=== PATIENT | female | born 1980 ===

== ENCOUNTER 2017-04-23 18:23 | Emergency (ER) | payer SELFPAY ==
[2017-04-23 18:43] VITALS: RESP 18; TEMP 97.8
[2017-04-23] MEDS ORDERED: Sodium Chloride 0.9% 1,000 ML IV ONE (19:12)
--- NOTE | 2017-04-23 19:47 | C.PDOC ---
History Of Present Illness 36 y/o female, whose PMHx includes Migraines, presents to the ED for evaluation of a migraine headache which began this morning. She describes a generalized, throbbing pain and notes this is typical of her migraine headaches. Patient also reports associated photophobia, nausea, and vomiting. She took Imitrex without relief, so presents to the ED for further evaluation. She denies fever, chills, neck stiffness, extremity numbness/weakness. Time Seen by Provider: 04/23/17 19:08 Chief Complaint (Nursing): Headache History Per: Patient History/Exam Limitations: no limitations Onset/Duration Of Symptoms: Hrs Current Symptoms Are (Timing): Still Present Quality: Aching Preceeding Symptoms: Visual Disturbances, Known Migraine Symptoms Associated Symptoms: Photophobia, Nausea, Vomiting. denies: Blurred Vision, Extremity Weakness Additional History Per: Patient Past Medical History Reviewed: Historical Data, Nursing Documentation, Vital Signs Vital Signs: Last Vital Signs Temp 97.8 F 04/23/17 18:42 Pulse 62 04/23/17 18:42 Resp 18 04/23/17 18:42 BP 150/90 04/23/17 18:42 Pulse Ox 96 04/23/17 19:54 - Medical History PMH: Migraine Surgical History: No Surg Hx Family History: States: Unknown Family Hx - Social History Hx Alcohol Use: No Hx Substance Use: No - Immunization History Hx Tetanus Toxoid Vaccination: No Hx Influenza Vaccination: No Hx Pneumococcal Vaccination: No Review Of Systems Constitutional: Negative for: Fever, Chills Eyes: Positive for: Other (+photophobia) Cardiovascular: Negative for: Chest Pain, Palpitations Respiratory: Negative for: Cough, Shortness of Breath Gastrointestinal: Positive for: Nausea, Vomiting Musculoskeletal: Negative for: Neck Pain Neurological: Positive for: Headache. Negative for: Weakness, Numbness, Dizziness Physical Exam - Physical Exam Appears: Non-toxic, No Acute Distress, Other (uncomfortable) Skin: Normal Color, Warm, Dry Head: Atraumatic, Normacephalic, No Tenderness, No Swelling Eye(s): bilateral: Normal Inspection, PERRL, EOMI, Photophobia Nose: Normal Oral Mucosa: Moist Neck: Normal ROM, Supple Chest: Symmetrical, No Deformity, No Tenderness Cardiovascular: Rhythm Regular, No Murmur Respiratory: Normal Breath Sounds, No Rales, No Rhonchi, No Wheezing Extremity: Bilateral: Atraumatic, Normal Color And Temperature, Normal ROM Neurological/Psych: Oriented x3, Normal Speech, Normal Cranial Nerves, No Cerebellar Signs Gait: Steady ED Course And Treatment O2 Sat by Pulse Oximetry: 96 (on RA) Pulse Ox Interpretation: Normal Medical Decision Making Medical Decision Making: Impression: 36y/o female with migraine type headache Plan: * Reglan IV * Toradol IV * IV fluids * reassess and disposition Progress: Patient received Reglan IV, Toradol IV, and IVF. On re-eval an hour later patient is resting in dark room. She is easily awoken and reports feeling better. She no longer has nausea. She remains alert and oriented, normal neurological exam. Patient feels comfortable going home and will be discharged. Disposition Counseled Patient/Family Regarding: Diagnosis, Need For Followup, Rx Given - Disposition Referrals: Yeyo Hirsch MD [Medical Doctor] - Disposition: HOME/ ROUTINE Disposition Time: 20:46 Condition: STABLE Additional Instructions: Por favor, tome chahal medicacin habitual para las migraas en el primer inicio. Tambin puede isabel el contador de Excedrin o Tylenol, adems de Imitrex. [place] reglan prescrito segn sea necesario para las nuseas y el dolor de jake. 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 - Scribe Statement The provider has reviewed the documentation as recorded by the Scribe (Ute Peck) All medical record entries made by the Scribe were at my direction and personally dictated by me. I have reviewed the chart and agree that the record accurately reflects my personal performance of the history, physical exam, medical decision making, and the department course for this patient. I have also personally directed, reviewed, and agree with the discharge instructions and disposition.
[2017-04-23 21:18] VITALS: BP 105/68; PULSE 92; O2SAT 98
== END 2017-04-23 21:18 | disposition home or self-care (01) ==
LOC: C.ER 18:23
DX: G43.909 Migraine, unspecified, not intractable, without status migrainosus (principal)
CPT/HCPCS: 96361; 96374; 96375; 99285; J1885; J2765; J7040

== ENCOUNTER 2017-10-08 17:40 | Emergency (ER) | payer OTHER ==
[2017-10-08 17:54] VITALS: RESP 18
[2017-10-08] MEDS ORDERED: Sodium Chloride 0.9% 1,000 ML IV ONE (18:56)
--- NOTE | 2017-10-08 19:01 | C.PDOC ---
History Of Present Illness 37 y/o female presents to ED with complaints of 4 days menstrual bleeding associated with usual menstrual cramping and mild nausea. Pt states her menstrual bleeding usually lasts only 2 and a half days. Pt doesn't know if she is . Denies any other physical complaints. Time Seen by Provider: 10/08/17 18:49 Chief Complaint (Nursing): Medical Clearance History Per: Patient History/Exam Limitations: no limitations Onset/Duration Of Symptoms: Hrs Current Symptoms Are (Timing): Still Present Recent travel outside of the [place] States: No Past Medical History Reviewed: Historical Data, Nursing Documentation, Vital Signs Vital Signs: Last Vital Signs Temp 98.5 F 10/08/17 17:52 Pulse 74 10/08/17 17:52 Resp 18 10/08/17 17:52 BP 132/85 10/08/17 17:52 Pulse Ox 100 10/08/17 19:06 - Medical History PMH: Migraine Surgical History: No Surg Hx Family History: States: Unknown Family Hx - Social History Hx Alcohol Use: No Hx Substance Use: No - Immunization History Hx Tetanus Toxoid Vaccination: No Hx Influenza Vaccination: No Hx Pneumococcal Vaccination: No Review Of Systems Constitutional: Negative for: Fever, Chills Cardiovascular: Negative for: Chest Pain Respiratory: Negative for: Shortness of Breath Gastrointestinal: Positive for: Nausea (mild). Negative for: Vomiting, Abdominal Pain, Diarrhea Genitourinary: Positive for: Vaginal Bleeding (menstrual), Other (Menstrual cramping). Negative for: Dysuria, Frequency Skin: Negative for: Rash Neurological: Negative for: Weakness, Numbness Physical Exam - Physical Exam Appears: Well, Non-toxic, No Acute Distress Skin: Normal Color, Warm, Dry Head: Atraumatic, Normacephalic Eye(s): bilateral: Normal Inspection Oral Mucosa: Moist Neck: Supple Chest: Symmetrical, No Tenderness Cardiovascular: Rhythm Regular Respiratory: Normal Breath Sounds, No Rales, No Rhonchi, No Wheezing Gastrointestinal/Abdominal: Normal Exam (Obese), Soft, No Tenderness, No Distention Neurological/Psych: Oriented x3, Normal Speech, Normal Cognition ED Course And Treatment - Laboratory Results Result Diagrams: 10/08/17 19:39 10/08/17 19:39 Lab Interpretation: Normal (ua + blood, neg WBC's) Urine POC: Negative O2 Sat by Pulse Oximetry: 100 (RA) Pulse Ox Interpretation: Normal Progress Note: NS, reglan, pepcid Reevaluation Time: 20:06 Reassessment Condition: Improved Medical Decision Making Medical Decision Making: Ordered blood work and urinalysis. Administered Pepcid and IV fluids. typical menstrual bleeding, NOT , stable hgb 13 Disposition Doctor Will See Patient In The: Office Counseled Patient/Family Regarding: Studies Performed, Diagnosis - Disposition Disposition: HOME/ ROUTINE Disposition Time: 20:07 Condition: GOOD Forms: [facility] (Vietnamese) - Clinical Impression Clinical Impression: Normal menstrual period - Scribe Statement The provider has reviewed the documentation as recorded by the Scribe Simran Graham All medical record entries made by the Scribe were at my direction and personally dictated by me. I have reviewed the chart and agree that the record accurately reflects my personal performance of the history, physical exam, medical decision making, and the department course for this patient. I have also personally directed, reviewed, and agree with the discharge instructions and disposition.
[2017-10-08] MEDS ORDERED: Sodium Chloride 0.9% 1,000 ML ONE (19:38)
[2017-10-08 19:42] LABS: BASO # 0.1 K/uL (0.0-0.2); BASO % 0.6 % (0.0-2.0); EOS # 0.3 K/uL (0.0-0.7); EOS % 2.9 % (0.0-4.0); HEMOGLOBIN 13.1 g/dL (11.0-16.0); LYMPH # 2.3 K/uL (1.0-4.3); LYMPH % 25.5 % (20.0-40.0); MEAN CELL VOLUME 83.3 fL (81.0-99.0); MEAN CORPUSCULAR HEMOGLOBIN 27.7 pg (27.0-31.0); MEAN CORPUSCULAR HGB CONC 33.2 g/dL (33.0-37.0); MEAN PLATELET VOLUME 8.9 fL (7.2-11.7); MONO # 0.6 K/uL (0.0-0.8); MONO % 7.1 % (0.0-10.0); NEUT # 5.7 K/uL (1.8-7.0); NEUT % 63.9 % (50.0-75.0); NRBC % 0.1 % (0.0-2.0); RBC 4.73 Mil/uL (3.80-5.20); RED CELL DISTRIBUTION WIDTH 14.6 % (11.5-14.5)
[2017-10-08 19:45] LABS: URINE BACTERIA FEW (<OCC); URINE BILIRUBIN NEGATIVE (NEGATIVE); URINE BLOOD 3+ (NEGATIVE); URINE CLARITY Hazy (Clear); URINE COLOR Yellow (YELLOW); URINE GLUCOSE (UA) NORMAL (Normal); URINE LEUKOCYTE ESTERASE 1+ Leu/uL (Negative); URINE NITRATE NEGATIVE (NEGATIVE); URINE PROTEIN 2+ mg/dL (NEGATIVE); URINE UROBILINOGEN NORMAL mg/dL (0.2-1.0)
[2017-10-08 19:54] LABS: ALB/GLOB RATIO 1.1 (1.0-2.1); ALBUMIN 3.9 g/dL (3.5-5.0); ALT/SGPT 29 U/L (9-52); AST/SGOT 30 U/L (14-36); BLOOD UREA NITROGEN 10 mg/dL (7-17); CALCIUM 8.7 mg/dl (8.6-10.4); GFR AFRICAN-AMERICAN > 60; GFR NON-AFRICAN AMERICAN > 60
[2017-10-08 19:55] LABS: HCG,QUALITATIVE URINE NEGATIVE (NEGATIVE)
[2017-10-08 20:13] VITALS: BP 134/78; PULSE 81; TEMP 97; O2SAT 97
== END 2017-10-08 20:11 | disposition home or self-care (01) ==
LOC: C.ER 17:40
DX: N93.9 Abnormal uterine and vaginal bleeding, unspecified (principal)
CPT/HCPCS: 80053; 81001; 84703; 85025; 96361; 96374; 96375; 99284; J2765; J7040

== ENCOUNTER 2018-04-09 10:19 | Emergency (ER) | payer OTHER ==
[2018-04-09 10:43] VITALS: RESP 20
--- NOTE | 2018-04-09 10:55 | C.PDOC ---
History Of Present Illness <Ivelisse Terry - Last Filed: 04/09/18 13:41> <Mary Bernabe - Last Filed: 04/11/18 07:35> 37 year old female with no past medical history presents to the ER for pelvic pain. Patient states the pain started about 15 days ago and she has also had white vaginal discharge that started 4 days ago. Patient states she has been recently taking care of her physically disabled as he lost his right limbs and she has had to carry him often. She states she has also had pain with urination. She denies fever, chills, vaginal odor, vaginal pruritus, or sexually transmitted infections. Patient denies recent antibiotic use and states she took ibuprofen yesterday which helped with the lower pelvic pain. (Ivelisse Terry) <Ivelisse Terry - Last Filed: 04/09/18 13:41> <Mary Bernabe - Last Filed: 04/11/18 07:35> Time Seen by Provider: 04/09/18 10:45 Chief Complaint (Nursing): Female Genitourinary Past Medical History - Medical History PMH: Migraine Family History: States: Unknown Family Hx - Social History Hx Alcohol Use: No Hx Substance Use: No - Immunization History Hx Tetanus Toxoid Vaccination: No Hx Influenza Vaccination: No Hx Pneumococcal Vaccination: No <Ivelisse Terry - Last Filed: 04/09/18 13:41> Vital Signs: Last Vital Signs Temp 98.5 F 04/09/18 14:10 Pulse 53 L 04/09/18 14:10 Resp 20 04/09/18 10:41 BP 112/71 04/09/18 14:10 Pulse Ox 100 04/09/18 14:10 Review Of Systems Constitutional: Negative for: Fever, Chills Cardiovascular: Negative for: Chest Pain Respiratory: Negative for: Shortness of Breath Gastrointestinal: Negative for: Nausea, Vomiting, Constipation Genitourinary: Negative for: Dysuria <Ivelisse Terry - Last Filed: 04/09/18 13:41> Physical Exam - Physical Exam Appears: Well Skin: Normal Color Head: Atraumatic, Normacephalic Eye(s): bilateral: Normal Inspection, PERRL, EOMI Ear(s): Bilateral: Normal Cardiovascular: Rhythm Regular Respiratory: Normal Breath Sounds, No Rales, No Rhonchi, No Stridor, No Wheezing Gastrointestinal/Abdominal: Soft, Tenderness (lower pelvic tenderness), No Organomegaly, No Distention Back: CVA Tenderness (right CVA tenderness) Pelvic: Normal External Exam, Normal Speculum Exam, Normal Bimanual Exam, No Vaginal Bleeding, No Vaginal Discharge, No Cervical Motion Tenderness, No Adnexal Tenderness, No Enlarged Uterus, No Tender Uterus Extremity: No Tenderness, No Pedal Edema Neurological/Psych: Oriented x3 <Ivelisse Terry - Last Filed: 04/09/18 13:41> ED Course And Treatment - Laboratory Results Urine POC: Negative O2 Sat by Pulse Oximetry: 98 <Ivelisse Terry - Last Filed: 04/09/18 13:41> - CT Scan/US transvaginal US Other Rad Studies (CT/US): Read By Radiologist, Radiology Report Reviewed CT/US Interpretation: Accession No. : [id number]. Patient Name / ID : YEMI GAMINO / [id number]. Exam Date : 04/09/2018 12:53:33 ( Approved ). Study Comment : Sex / Age : F / 37Y. Creator : Marquis Garcia MD. Dictator : Marquis Garcia MD. Deputy Court : Hoop Driving Machine Operator Helper : Marquis Garcia MD. Approver2 : Report Date : 04/09/2018 13:34:28. My Comment : . Date of service: 04/09/2018. HISTORY: pelvic tenderness. COMPARISON: None available. TECHNIQUE: Transabdominal and transvaginal. FINDINGS: UTERUS: Measures 9.1 x 4.2 x 4.8 cm. Normal in size and appearance. No fibroid or other mass lesion seen. ENDOMETRIUM: Measures 9 mm in diameter. Unremarkable. CERVIX: No cervical abnormality identified. RIGHT OVARY: Measures 2.6 x 1.4 x 1.8 cm. No solid mass. Normal flow. LEFT OVARY: Measures 3.1 x 2.1 x 2.4 cm. No solid mass. Normal flow. FREE FLUID: No significant free fluid noted. OTHER FINDINGS: None. IMPRESSION: Unremarkable pelvic ultrasound. Progress Note: Patient with normal pelvic exam, normal UA, neg UPreg and normal transvaginal US. She is comfortable, with normal vitals. Instructed patient to follow up with doctor of dental surgery within 1 week. She understands she should return to ED if her symptoms worsen. <Mary Bernabe - Last Filed: 04/11/18 07:35> Medical Decision Making <Ivelisse Terry - Last Filed: 04/09/18 13:41> <Mayr Bernabe - Last Filed: 04/11/18 07:35> Medical Decision Making: UA: Negative; Vaginal US: Negative Counselled patient to follow up with and OBGYN. (Ivelisse Terry) Disposition Discussed With .: Mary Bernabe Doctor Will See Patient In The: ED - Disposition Disposition Time: 13:42 <Ivelisse Terry - Last Filed: 04/09/18 13:41> <Mary Bernabe - Last Filed: 04/11/18 07:35> - Disposition Referrals: Ruben Barone MD [Staff Provider] - Mari Hernandez MD [Medical Doctor] - Bernarda Estevez MD [Staff Provider] - Disposition: HOME/ ROUTINE Condition: GOOD Additional Instructions: Patient to take Motrin or Tylenol every 6 hours as needed for pain. Instructions: Acute Pelvic Pain (DC) Forms: Gen Discharge Inst Yi, General Discharge Instructions, [facility] (Armenian) Print Language: HAITIAN - Clinical Impression Clinical Impression: Pelvic pain - PA / ELIGIBILITY ANALYST / Resident Statement / has reviewed & agrees with the documentation as recorded. / has examined the patient and agrees with the treatment plan. <Ivelisse Terry - Last Filed: 04/09/18 13:41>
[2018-04-09 11:17] LABS: HCG,QUALITATIVE URINE NEGATIVE (NEGATIVE)
[2018-04-09 11:20] LABS: SQUAMOUS EPITHIAL 13 /hpf (0-5); URINE BACTERIA RARE (<OCC); URINE BILIRUBIN NEGATIVE (NEGATIVE); URINE BLOOD NEGATIVE (NEGATIVE); URINE CLARITY Hazy (Clear); URINE COLOR Yellow (YELLOW); URINE GLUCOSE (UA) NORMAL (Normal); URINE LEUKOCYTE ESTERASE NEG Leu/uL (Negative); URINE PROTEIN NEGATIVE (NEGATIVE); URINE UROBILINOGEN NORMAL mg/dL (0.2-1.0)
--- NOTE | 2018-04-09 13:36 | US ---
Date of service: 04/09/2018 HISTORY: pelvic tenderness COMPARISON: None available. TECHNIQUE: Transabdominal and transvaginal FINDINGS: UTERUS: Measures 9.1 x 4.2 x 4.8 cm. Normal in size and appearance. No fibroid or other mass lesion seen. ENDOMETRIUM: Measures 9 mm in diameter. Unremarkable. CERVIX: No cervical abnormality identified. RIGHT OVARY: Measures 2.6 x 1.4 x 1.8 cm. No solid mass. Normal flow. LEFT OVARY: Measures 3.1 x 2.1 x 2.4 cm. No solid mass. Normal flow. FREE FLUID: No significant free fluid noted. OTHER FINDINGS: None. IMPRESSION: Unremarkable pelvic ultrasound.
[2018-04-09 14:10] VITALS: BP 112/71; PULSE 53; TEMP 98.5; O2SAT 100
== END 2018-04-09 14:15 | disposition home or self-care (01) ==
LOC: C.ER 10:19
DX: R10.2 Pelvic and perineal pain (principal)